=== PATIENT | female | born 1960 | race Caucasian/White ===

== ENCOUNTER 2016-08-15 05:37 | Emergency (ER) | payer MEDICAID, OTHER ==
[~2016-08-15] VITALS: Ht 149.9 cm; Wt 62.0 kg
[2016-08-15] MEDS ORDERED: PHENYLEPHRINE NASAL 1%, 15ML SPRAY NAS ONE (06:00)
[2016-08-15] MEDS ORDERED: PHENYLEPHRINE NASAL 1%, 15ML SPRAY ONE (06:00)
[2016-08-15] MEDS ORDERED: BACITRACIN ZINC OINT 500U/GM, 0.9 GM ONE (06:14)
[2016-08-15 06:30] VITALS: BP 134/74
== END 2016-08-15 06:33 | disposition home or self-care (01) ==
LOC: ED 06:27
DX: R04.0 Epistaxis (principal); E11.9 Type 2 diabetes mellitus without complications
CPT/HCPCS: 99283

== ENCOUNTER 2018-06-04 21:57 | Inpatient (IN) | payer OTHER ==
[~2018-06-04] VITALS: Ht 149.9 cm; Wt 61.2 kg
[2018-06-04] MEDS ORDERED: ASPIRIN 81 MG TABLET CHEW PO ONE (22:30)
[2018-06-04] MEDS ORDERED: MORPHINE SULFATE 4 MG/ML, 1ML IVPush PRN (22:30)
[2018-06-04] MEDS ORDERED: ONDANSETRON 2MG/ML, 2ML IVPush ONE (22:30)
--- NOTE | 2018-06-04 22:33 | NUR ---
pt presented with cp that radiates to her back, sob that started at 2030 tonight , famiily at BS, monitors applied, call light within reach. iv site started, labs drawn
[2018-06-04 22:45] LABS: BASOPHILS # (AUTO) 0.02 x10^3/uL (0-0.1); BASOPHILS % (AUTO) 0 % (0-1); EOSINOPHILS # (AUTO) 0.12 x10^3/uL (0-0.4); EOSINOPHILS % (AUTO) 1 % (1-7); LYMPHOCYTES # (AUTO) 2.57 x10^3/uL (1-3.4); LYMPHOCYTES % (AUTO) 30 % (22-44); MD NO; MEAN CORPUSCULAR HGB CONC 33.5 g/dL (32.4-35.8); MEAN CORPUSCULAR VOLUME 92.7 fL (80-100); MEAN PLATELET VOLUME 9.7 fL (7.4-10.4); MONOCYTES # (AUTO) 0.48 x10^3/uL (0.2-0.8); MONOCYTES % (AUTO) 6 % (2-9); NEUTROPHILS # (AUTO) 5.41 x10^3/uL (1.8-6.8); NEUTROPHILS % (AUTO) 63 % (42-75); PLATELET COUNT 360 x10^3/uL (130-400); RED BLOOD COUNT 4.59 x10^6/uL (3.82-5.3); RED CELL DISTRIBUTION WIDTH 13.4 % (9.6-15.2)
[2018-06-04] MEDS ORDERED: ONDANSETRON 2MG/ML, 2ML ONE (22:45)
[2018-06-04] MEDS ORDERED: ASPIRIN 81 MG TABLET CHEW ONE (22:45)
[2018-06-04] MEDS ORDERED: MORPHINE SULFATE 4 MG/ML, 1ML ONE (22:45)
[2018-06-04] MEDS ORDERED: NITROGLYCERIN SINGLE TAB 0.4 MG SL ONE (22:46)
[2018-06-04] MEDS ORDERED: OMNIPAQUE 350 MG/ML, 100ML BOTTLE ONE (22:54)
[2018-06-04 22:58] LABS: ALBUMIN 4.3 g/dL (3.4-5.0); ANION GAP 6 mmol/L (5-15); CALCIUM 9.7 mg/dL (8.5-10.1); CHLORIDE 101 mmol/L (98-107); CREATININE 0.73 mg/dL (0.55-1.02)
[2018-06-04] MEDS: NITROGLYCERIN SINGLE TAB 0.4 MG SL PRN ×2 (23:00→23:23)
[2018-06-04 23:02] LABS: TROPONIN I < 0.015 ng/mL (0.000-0.045)
--- NOTE | 2018-06-04 23:03 | NUR ---
pt medicated per may, awaiting cta and lab results
[2018-06-05] MEDS ORDERED: ONDANSETRON 2MG/ML, 2ML IVPush PRN
[2018-06-05] MEDS ORDERED: morphine SULFATE 10 MG/ML, 1ML IVPush PRN
[2018-06-05] MEDS ORDERED: hydrALAzine 20 MG/ML, 1ML IVPush PRN
[2018-06-05] MEDS ORDERED: ENOXAPARIN 40 MG/0.4 ML ONE (00:18)
[2018-06-05] MEDS: SODIUM CHLORIDE 0.9% 1,000 ML IV SCH ×2 (00:20→13:15)
[2018-06-05] MEDS: ENOXAPARIN 40 MG/0.4 ML SQ SCH (00:24)
--- NOTE | 2018-06-05 00:25 | NUR ---
ASSISTED PT ONTO HOSPITAL BED, MONITORS IN PLACE, CALL LIGHT WITHIN REACH
[2018-06-05 00:54] LABS: TROPONIN I < 0.015 ng/mL (0.000-0.045)
[2018-06-05 01:18] LABS: HEMOGLOBIN A1C 9.4 % (4.2-6.3)
--- NOTE | 2018-06-05 03:54 | NUR ---
PT RESTING WITH EYES CLOSED, NADN, EQUAL CHEST RISE/FALL OBSERVED, MONITORS IN PLACE,SIDERAILS UP X2, CALL LIGHT WITHIN REACH
[2018-06-05] MEDS ORDERED: ASPIRIN 325 MG TABLET EC ONE (05:30)
[2018-06-05] MEDS: ASPIRIN 325 MG TABLET EC PO SCH (05:33)
[2018-06-05 05:41] LABS: ANION GAP 7 mmol/L (5-15); CALCIUM 8.7 mg/dL (8.5-10.1); CHLORIDE 106 mmol/L (98-107)
[2018-06-05 05:46] LABS: CHOL/HDL RATIO 2.6; CHOLESTEROL, TOTAL 167 mg/dL (140-239); CREATININE 0.49 mg/dL (0.55-1.02); HDL CHOL % 38 % (28-40); HDL CHOLESTEROL (DIRECT) 64 mg/dL (40-60); LDL CHOLESTEROL,CALCULATED 76 mg/dL (54-169); LDL/HDL RATIO 1.2 (0.5-3.0); TRIGLYCERIDES 136 mg/dL (50-200); TROPONIN I < 0.015 ng/mL (0.000-0.045); VLDL CHOLESTEROL 27 mg/dL (0-25)
[2018-06-05 05:56] LABS: BASOPHILS # (AUTO) 0.01 x10^3/uL (0-0.1); BASOPHILS % (AUTO) 0 % (0-1); EOSINOPHILS % (AUTO) 1 % (1-7); LYMPHOCYTES # (AUTO) 2.36 x10^3/uL (1-3.4); LYMPHOCYTES % (AUTO) 21 % (22-44); MD NO; MEAN CORPUSCULAR HEMOGLOBIN 31.1 pg (27.0-34.8); MEAN CORPUSCULAR HGB CONC 33.6 g/dL (32.4-35.8); MEAN CORPUSCULAR VOLUME 92.5 fL (80-100); MEAN PLATELET VOLUME 9.6 fL (7.4-10.4); MONOCYTES # (AUTO) 0.51 x10^3/uL (0.2-0.8); MONOCYTES % (AUTO) 5 % (2-9); NEUTROPHILS # (AUTO) 8.43 x10^3/uL (1.8-6.8); NEUTROPHILS % (AUTO) 74 % (42-75); PLATELET COUNT 351 x10^3/uL (130-400); RED BLOOD COUNT 4.29 x10^6/uL (3.82-5.3); RED CELL DISTRIBUTION WIDTH 13.2 % (9.6-15.2)
--- NOTE | 2018-06-05 06:55 | NUR ---
REPORT GIVEN TO REID PELLETIER
--- NOTE | 2018-06-05 07:15 | NUR ---
REC REPORT PT RESTING NPO AT THIS TIME FAMILY AT THE BS
--- NOTE | 2018-06-05 08:01 | NUR ---
cardiac rhythm strip printed and placed on chart
[2018-06-05] MEDS: INSULIN LISPRO 100 UNITS/ML, PEN SQ-INSULIN SCH ×4 (09:30→21:02)
[2018-06-05] MEDS ORDERED: LISINOPRIL 10 MG TABLET ONE (10:31)
[2018-06-05] MEDS: LISINOPRIL 10 MG TABLET PO SCH (10:42)
--- NOTE | 2018-06-05 11:29 | NUR ---
[facility] MED TO THE BS
[2018-06-05] MEDS ORDERED: REGADENOSON 0.4 MG/5 ML SYRINGE ONE (12:35)
--- NOTE | 2018-06-05 12:44 | NUR ---
REPORT FROM PRABHU MATHEWS, ASSUME CARE OF PT AT THIS TIME. PT SLEEPING ON HOSPITAL BED, LIGHTS OFF
--- NOTE | 2018-06-05 14:17 | NUR ---
REPORT TO CARLEY MATHEWS. PT READY FOR TRANSPORT ON RETURN FROM [facility].
[2018-06-05] MEDS ORDERED: MAALOX/HYOSCYAMINE/LIDOCAINE 45 ML BTL PO ONE (16:30)
[2018-06-05 16:44] VITALS: BP 158/78
[2018-06-05 20:22] VITALS: BP 118/71
[2018-06-05] MEDS: ACETAMINOPHEN 325 MG TABLET PO PRN (20:55)
[2018-06-06] MEDS: ENOXAPARIN 40 MG/0.4 ML SQ SCH (00:05)
[2018-06-06] MEDS ORDERED: CHLO25TA PO (00:12)
[2018-06-06] MEDS ORDERED: AMLO5TAB10 PO (00:17)
[2018-06-06] MEDS ORDERED: ATOR10TA9 PO (00:17)
[2018-06-06] MEDS ORDERED: SULF500T47 PO (00:17)
[2018-06-06] MEDS ORDERED: ALEN70TA6 PO (00:21)
[2018-06-06] MEDS ORDERED: METF10007 PO (00:21)
[2018-06-06] MEDS ORDERED: LOSA50TA14 PO (00:21)
[2018-06-06] MEDS ORDERED: FOLI0.8T2 PO (00:21)
[2018-06-06 00:37] VITALS: BP 126/69
[2018-06-06] MEDS: SODIUM CHLORIDE 0.9% 1,000 ML IV SCH (03:37)
[2018-06-06] MEDS: ASPIRIN 325 MG TABLET EC PO SCH (06:16)
[2018-06-06] MEDS: ACETAMINOPHEN 325 MG TABLET PO PRN (07:58)
[2018-06-06] MEDS: LISINOPRIL 10 MG TABLET PO SCH (07:58)
[2018-06-06] MEDS: INSULIN LISPRO 100 UNITS/ML, PEN SQ-INSULIN SCH (07:58)
[2018-06-06 08:15] VITALS: BP 111/69
== END 2018-06-06 10:50 | disposition home or self-care (01) | DRG 313 ==
LOC: ED 23:32 → EDIP 23:45 → 5SO 06-05 15:31 → DCLOUNGE 06-06 10:25
PROVIDERS: ADMIT Family Medicine; ATTEND Family Medicine
DX: R07.89 Other chest pain (principal); D35.02 Benign neoplasm of left adrenal gland; E11.65 Type 2 diabetes mellitus with hyperglycemia; E78.5 Hyperlipidemia, unspecified; I10 Essential (primary) hypertension; I16.0 Hypertensive urgency; Z79.01 Long term (current) use of anticoagulants; Z79.82 Long term (current) use of aspirin; Z79.899 Other long term (current) drug therapy; X50.0XXA Overexertion from strenuous movement or load, initial encounter; Y93.89 Activity, other specified; Y92.89 Other specified places as the place of occurrence of the external cause; Y99.8 Other external cause status
CPT/HCPCS: 36415; 71045; 71275; 74175; 78452; 80048; 80061; 82040; 82962; 83036; 84484; 85025; 93005; 93017; 96372; 96374; 96375; G0378; J1650; J2405; J2785; Q9967; A9502; C9898; J0360; J1815; J7030